=== PATIENT | female | born 2005 ===

== ENCOUNTER 2024-07-28 14:53 | Emergency (ER) | payer SELFPAY ==
--- NOTE | 2024-07-28 14:57 | ECG_ITS ---
Test Date: 2024-07-28 15:03:40 Measurements Intervals [place] Rate: 113 P: 78 ND: 136 QRS: 58 QRSD: 85 T: 58 QT: 320 QTc: 439 Interpretive Statements SINUS TACHYCARDIA INCOMPLETE RIGHT BUNDLE BRANCH BLOCK NONSPECIFIC T-WAVE ABNORMALITY- ANT/INF LEADS BASELINE ARTIFACT- I, III, AVR, AVL, AVF, V1-V3 ABNORMAL ECG No previous ECG available for comparison Electronically Signed On 07-28-2024 16:47:22 [employer] by Kamari Moore D.O.
--- NOTE | 2024-07-28 16:03 | PC.NURSE ---
pt left d/t wait time
== END 2024-07-28 16:16 | disposition left against medical advice (07) ==
PROVIDERS: Emergency Provider Emergency Medicine
DX: R07.2 Precordial pain (principal)
CPT/HCPCS: 93005; 99199